=== PATIENT | male | born 1970 | race Caucasian/White ===

== ENCOUNTER 2017-02-07 13:47 | Emergency (ER) | payer OTHER ==
[~2017-02-07] VITALS: Ht 167.6 cm; Wt 99.8 kg
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
--- NOTE | 2017-02-07 14:48 | RADIOLOGY REPORT ---
EXAMINATION: XR RIBS, LEFT CLINICAL INFORMATION: Left rib pain. Fall. COMPARISON: None TECHNIQUE: 6 views of the left ribs were obtained. FINDINGS: Subtle cortical irregularity along the anterior lateral left 10th rib. No other findings concerning for fracture or dislocation. No pneumothorax or evidence of hemothorax. No pulmonary parenchymal consolidation. No mediastinal widening. IMPRESSION: Possible nondisplaced left anterolateral 10th rib fracture. No other findings concerning for rib fracture. No pneumothorax.
[2017-02-07] MEDS ORDERED: IBUPROFEN800 M1 PO (15:02)
[2017-02-07] MEDS ORDERED: PERCOCET 5-3251 EACH PO (15:02)
[2017-02-07 15:15] VITALS: BP 124/74
== END 2017-02-07 15:15 ==
LOC: ERH 13:47
DX: S22.32XA Fracture of one rib, left side, initial encounter for closed fracture (principal); W19.XXXA Unspecified fall, initial encounter; Y92.9 Unspecified place or not applicable; Y93.9 Activity, unspecified
CPT/HCPCS: 71100-LT